=== PATIENT | male | born 1965 | race Caucasian/White ===

== ENCOUNTER 2017-05-08 20:27 | Observation (INO) | payer MEDICARE, OTHER ==
[~2017-05-08] VITALS: Ht 180.3 cm; Wt 99.1 kg
[2017-05-08 20:28] VITALS: BP 140/90; PULSE 64; RESP 18; TEMP 98; O2SAT 99
[2017-05-08 20:39] VITALS: RESP 24; O2SAT 97
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
[2017-05-08] MEDS ORDERED: NITROGLYCERIN 0.4 MG SL 25 TABS/BTL SL STA (20:59)
[2017-05-08] MEDS ORDERED: NITROGLYCERIN-D5W 50 MG/250 ML 250 ML IV PRN (20:59)
[2017-05-08] MEDS ORDERED: HEPARIN SODIUM - IV 10,000 UNITS/10 ML VIAL IV STA (20:59)
[2017-05-08] MEDS ORDERED: CALC550C CHEW (20:59)
[2017-05-08] MEDS ORDERED: ASPIRIN 81 MG CHEW TAB PO STA (20:59)
[2017-05-08] MEDS ORDERED: [UNRECOGNIZED DRUG - REMARK] (20:59)
[2017-05-08] MEDS ORDERED: ZOLO50TA PO (20:59)
[2017-05-08] MEDS ORDERED: DIAZ5 PO (20:59)
[2017-05-08] MEDS ORDERED: SODIUM CHLOR 0.9% 1000 ML INJ 1,000 ML IV ONE (20:59)
[2017-05-08] MEDS ORDERED: SODIUM CHLORID 0.9% 500 ML INJ 500 ML IV ONE (21:00)
[2017-05-08] MEDS ORDERED: SODIUM CHLORIDE 0.9% FLUSH 10 ML FLUSH IVF PRN (21:00)
[2017-05-08] MEDS ORDERED: NITROGLYCERIN 0.4 MG SL 25 TABS/BTL SL PRN (21:00)
[2017-05-08 21:02] VITALS: BP 140/90; PULSE 76; RESP 20; O2SAT 96
[2017-05-08 21:05] VITALS: O2SAT 97
[2017-05-08 21:12] LABS: AUTOMATED NEUTROPHIL # 9.4 TH/MM3 (1.8-7.7); BASOPHIL % 0.3 % (0.0-2.0); EOSINOPHIL # 0.1 TH/MM3 (0-0.4); EOSINOPHIL % 0.5 % (0.0-4.0); HEMATOCRIT 49.3 % (39.0-51.0); HEMO FLAGS DIFF FINAL; LYMPH % 15.6 % (9.0-44.0); LYMPHOCYTE # 1.9 TH/MM3 (1.0-4.8); MEAN CELL VOLUME 92.5 FL (80.0-100.0); MEAN CORPUSCULAR HGB CONC 32.4 % (32.0-36.0); MONO % 6.6 % (0.0-8.0); PLATELET COUNT 286 TH/MM3 (150-450); RED BLOOD COUNT 5.33 MIL/MM3 (4.50-5.90); RED CELL DISTRIBUTION WIDTH 14.2 % (11.6-17.2); WHITE BLOOD COUNT 12.2 TH/MM3 (4.0-11.0)
[2017-05-08 21:26] LABS: APTT (PATIENT) 23.9 SEC (24.3-30.1); PROTHROMBIN TIME - PATIENT 10.8 SEC (9.8-11.6)
[2017-05-08 21:27] LABS: ALT (GPT) 48 U/L (12-78); ANION GAP 7 MEQ/L (5-15); AST (GOT) 21 U/L (15-37); BICARBONATE 26.5 MEQ/L (21.0-32.0); BLOOD UREA NITROGEN 12 MG/DL (7-18); CHLORIDE 104 MEQ/L (98-107); GLOMERULAR FILTRATION RATE 58 ML/MIN (>89); MAGNESIUM 2.1 MG/DL (1.5-2.5); POTASSIUM 3.8 MEQ/L (3.5-5.1); SODIUM (NA) 137 MEQ/L (136-145)
[2017-05-08 21:30] LABS: ALKALINE PHOSPHATASE 132 U/L (45-117); CREATINE KINASE 226 U/L (39-308); TOTAL BILIRUBIN ADULT 0.8 MG/DL (0.2-1.0)
[2017-05-08] MEDS ORDERED: IOHEXOL 350 MG/ML 100 ML BTL (for Cath Lab) OTHER ONE (21:36)
[2017-05-08 21:44] LABS: ALCOHOL LESS THAN 3 MG/DL (0-5)
[2017-05-08 21:56] LABS: CKMB 1.7 NG/ML (0.5-3.6)
[2017-05-08] MEDS ORDERED: MIDAZOLAM HCL 5 MG/5 ML VIAL ONE (22:05)
[2017-05-08] MEDS ORDERED: NITROGLYCERIN INJ 0 ML ONE (22:06)
[2017-05-08] MEDS ORDERED: HEPARIN SODIUM - IV 10,000 UNITS/10 ML VIAL ONE (22:06)
[2017-05-08] MEDS ORDERED: SODIUM CHLOR 0.9% 1000 ML INJ 500 ML IV ONE (22:15)
--- NOTE | 2017-05-08 22:17 | RADRPT ---
EXAM DATE/TIME: 05/08/2017 20:51 [place] COMPARISON: No previous studies available for comparison. INDICATIONS : Chest pain. MEDICAL HISTORY : None. SURGICAL HISTORY : None. ENCOUNTER: Initial ACUITY: 1 day PAIN SCORE: 10/10 LOCATION: Bilateral chest FINDINGS: A single view of the chest demonstrates the lungs to be symmetrically aerated without evidence of mas s, infiltrate or effusion. The cardiomediastinal contours are unremarkable. Osseous structures are intact. CONCLUSION: Normal examination. Frankie Vitale MD on May 08, 2017 at 22:15 Board Certified Radiologist. This report was verified electronically.
[2017-05-08 22:30] VITALS: BP 104/67; PULSE 67; RESP 16; TEMP 97.6; O2SAT 95
--- NOTE | 2017-05-08 22:31 | CATHPROC ---
[employer] HIS Report Study Information Study Number Admission Scheduled Start Study Start [id number] May 08 2017 8:27PM 05/08/2017 May 08 2017 9:36PM [place] Service Cardiac Catheterization Admit Source Facility Department Emergency department [facility] - Plastic Surgery Technician Physician and Clinical Staff Initial Bhavana Delgado Credit Control Officer Vicky Engle,RN Credit Control Officer Dallin Oquendo,RN Recorder Denise Calvo,RT(R) Recorder Yovany Hernandez RCIS(BS) Scrub Guille GravesRT(R) Procedures Performed Procedure Location (Site) Vessel Name Angiogram LV LV Ventricle Coronary Angiograms LCA Left Coronary Coronary Angiograms RCA Right Coronary L Heart Cath Equipment Time Sleeve Presser Operator Description Size Mfg Part Number Used/Scraped TRANSDUCER, TRUWAVE [id number] 21:58 Ombitron * Used W/STOCKCOCK *[id number] *[id number] [id number] *[id number] 21:58 MEDLINE [employer] PACK, CCL CUSTOM * Used *[id number] 21:58 MustHaveMenus PACER PEN, SKIN DUAL W/ RULER * Used *[id number] 22:27 [employer] 30 PIYUSH INDEFLATOR Used *[id number] 22:26 [employer] SHEATH, FR6.5 PRELUDE 11CM FR 6.5 038ACT Used *[id number] 21:58 [employer] WIRE, 3MMJ .035 180CM 180CM Used *[id number] PROBE COVER, STERILE [id number] 21:58 [employer] MEDICAL * Used ULTRASOUND W/ GEL *[id number] 21:58 NAMIC MANIFOLD, 4 PORT * Used *[id number] 21:58 NAMIC TUBING, HIGH PRESSURE 48" 48" Used *[id number] 21:58 NYCOMED OMNIPAQUE, 350 MG, 150ML 150ML [id number] Used [id number] 21:58 [employer] MEDICAL BLANKET,WARM AIR CCL * Used *[id number] 21:58 [employer] MEDICAL SHEATH, FR5 TERUMO (10CM) FR 5 Used *[id number] History: Current Medications Medication Dosage/Unit Route Frequency Last Date/Time Taken XARELTO Zoloft ASA Albuterol Prilosec History: Allergies Allergy Reaction Unable to Assess History: Risk Factors Family History of Hypertension Dyslipidemia Previous AR Previous Heart Failure Premature CAD No No No No No Prior Valve Prior PCI Prior CABG Surgery No No No Cerebrovascular Peripheral Artery Chronic Lung On Dialysis Diabetes Disease Disease Disease No No No No No History: Symptoms/Diagnosis Selection Items Chest pain SOB History: Stress Tests Stress or Imaging Studies Performed No Labs Hgb (g/dl) Hct (%) WBC (l/cumm) 11.60-17.00 35.00-51.00 4.00-11.00 16.0 49.3 12.2 Glucose (mg/dl) BUN (mg/dl) Creatinine (mg/dl) BUN:Creatinine (1:x) 74.00-106.00 7.00-18.00 0.50-1.30 10.00-20.00 99 12 1.0 12 Na (meq/l) K (meq/l) 136.00-145.00 3.50-5.10 137 3.8 INR (PTT:PT) 0.90-1.10 1 Troponin I (ng/ml) CPK-MB (ng/ML) 0.02-0.05 0.50-3.60 0.02 Not Drawn Medication Medication Total Dose (Bolus/Oral) Medication Total Dosage/Unit 1% XYLOCAINE 20 mL FENTANYL 100 mcg VERSED 3 mg Medications (Bolus/Oral) Medication Time Given Dosage/Unit Administered By Reason VERSED 05/08/2017 9:49:48 PM 2 mg Vicky Engle 2 mg VERSED given in lab by Vicky Engle RN in Left Hand via Peripheral IV. Ordered by Charline Balderrama. FENTANYL 05/08/2017 9:50:10 PM 50 mcg Eda Englefer 50 mcg FENTANYL given in lab by Vicky Engle RN in Left Hand via Peripheral IV. Ordered by Bhavana Phililps. 1% XYLOCAINE 05/08/2017 9:56:36 PM 20 mL Bhavana Balderrama 20 mL 1% XYLOCAINE given in lab by Bhavana Balderrama in Right Groin via Subcutaneous. Ordered by Bhavana Phillips. VERSED 05/08/2017 9:57:00 PM 1 mg Vicky Engle 1 mg VERSED given in lab by Vicky Engle RN in Left Hand via Peripheral IV. Ordered by Charline Balderrama. FENTANYL 05/08/2017 9:58:00 PM 50 mcg Vicky Engle 50 mcg FENTANYL given in lab by Vicky Engle, RN in Left Hand via Peripheral IV. Ordered by Bhavana Phillips. Initial Case Assessment Cardiovascular HR Rhythm NIBP Chest Pain 60 sinus 120/77 10 Edema Present Skin color Skin None Normal Warm Dry Circulatory - Right Pulses Dorsalis Pedis Femoral 1 2 Scale (0,1,2,3,4,d) Circulatory - Left Pulses Dorsalis Pedis Femoral 1 2 Scale (0,1,2,3,4,d) Neurological State Oriented to time-place- Alert Moves all extremities person Respiration - General Respiration Rate SpO2 (%) O2 (lpm) (B/min) 43 96 2 Final Case Assessment Cardiovascular HR Rhythm NIBP Chest Pain 66 sinus 106/57 10 Edema Present Skin color Skin None Normal Warm Dry Circulatory - Right Pulses Dorsalis Pedis Femoral 1 2 Scale (0,1,2,3,4,d) Circulatory - Left Pulses Dorsalis Pedis Femoral 1 2 Scale (0,1,2,3,4,d) Neurological State Oriented to time-place- Alert Moves all extremities person Respiration - General Respiration Rate SpO2 (%) O2 (lpm) (B/min) 13 96 2 Chronological Log Time Study Chronological Log 21:36:10 Patient arrived via Bed. 21:39:36 Patient Name, D.O.B, / Armband Verified By R.N. 21:39:37 Consent signed by the physician and the patient and verified by the Plastic Surgery Technician staff. 21:39:38 Pre-op and post- op instructions given; patient acknowledges understanding of instructions. Vitals capture started with the following parameters, Patient=Adult, Interval=5 min, Initial Pr vtoyes=362 mmHg, 21:39:47 Deflation Rate=5 mmHg, Cuff placed on Left Arm 21:39:49 Patient has been NPO for Less than 6Hrs. 21:39:50 Skin Breakdown- 21:39:51 Patient Warmer Placed on the Table. 21:39:56 A # 20 IV was noted in the Forearm (right). Grade = 0 21:39:56 A # 20 IV was noted in the Hand (left). Grade = 0 21:39:57 History and physical on the chart or being dictated. Assessment: Initial Case, HR=60 BPM, Rhythm=sinus, IGUO=664/77 mmhg, Chest Pain=10, Edema=None, Color=Normal, Skin = Warm, Dry Right Pulses: Luis Fernando Ped=1, Femoral=2 21:39:58 Left Pulses: Luis Fernando Ped=1, Femoral=2 Neurological: State=Alert, Ox3, HAHN Respiration: Resp=43 B/min, SpO2=96 %, O2=2 lpm 21:40:23 FMCQ=676/77 mmhg, SpO2=96.0 %, Resp=7 B/min, Pain=10, Brook=9, Mckeon=2 21:44:31 Reference ECG taken 21:45:20 HR=60 bpm, XKOS=465/74 mmhg, SpO2=95.0 %, Resp=16 B/min 21:46:00 MD arrived. 21:49:48 2 mg VERSED given in lab by Vicky Engle, EDDIE in Left Hand via Peripheral IV. Ordered by Bhavana Balderrama. 21:50:10 50 mcg FENTANYL given in lab by Vicky Engle RN in Left Hand via Peripheral IV. Ordered by Bhavana Balderrama. 21:50:19 HR=67 bpm, LKIW=763/72 mmhg, SpO2=97.0 %, Resp=18 B/min, Pain=10, Brook=9, Mckeon=2 21:51:12 Pressure channel 1 zeroed. Time Out. Correct patient, correct procedure, correct physician, power injector loaded with con trast with surgical team 21:54:44 present. Time Out Concurred by , individual staff in procedure. 21:55:20 HR=66 bpm, VWYN=947/60 mmhg, SpO2=90.0 %, Resp=11 B/min, Pain=10, Brook=9, Mckeon=2 21:56:22 Case Start 21:56:36 20 mL 1% XYLOCAINE given in lab by Bhavana Balderrama in Right Groin via Subcutaneous. Ordered by Bhavana Balderrama. 21:56:48 Access site was Right Femoral Artery. 21:57:00 1 mg VERSED given in lab by Vicky Engle, EDDIE in Left Hand via Peripheral IV. Ordered by Bhavana Balderrama. 21:57:13 A SHEATH, FR5 TERUMO (10CM) FR 5 was advanced into the Fem Art (right) using the Percutaneo us technique. A JL 4.0 INFINITI CATHETER FR 5 was advanced over a wire. OMNIPAQUE, 350 MG, 150ML 150ML was us ed for 21:57:56 injections. 21:58:00 50 mcg FENTANYL given in lab by Vicky Engle, EDDIE in Left Hand via Peripheral IV. Ordered by Bhavana Balderrama. 21:58:29 The LCA was injected and visualized at various angles. OMNIPAQUE, 350 MG, 150ML 150ML used . After removing the current catheter a AR MOD INFINITI CATHETER FR 5 was advanced over a WIRE, 3 MMJ .035 180CM 22:00:08 180CM. 22:00:19 HR=63 bpm, TYOR=234/58 mmhg, SpO2=92.0 %, Resp=12 B/min 22:01:09 The RCA was injected and visualized at various angles. OMNIPAQUE, 350 MG, 150ML 150ML used . Recorded Pressure: LV, HR=71, Condition=Condition 1 22:02:52 (Left Ventricle) LV 103/8/13 22:03:09 The LV was injected at 10 cc/sec for a total of 30. OMNIPAQUE, 350 MG, 150ML 150ML used. Recorded Pressure: LV, Ao, HR=71, Condition=Condition 1 22:04:04 (Left Ventricle) LV 98/7/11, (Aorta) Ao 92/56/73 22:05:05 Case End 22:05:20 HR=73 bpm, RGQS=831/58 mmhg, SpO2=93.0 %, Resp=15 B/min, Brook=9, Mckeon=2 22:05:30 Sheath removed; pressure applied to access site. 22:10:19 HR=67 bpm, NIBP=98/66 mmhg, SpO2=95.0 %, Resp=13 B/min, Brook=9, Mckeon=2 22:15:20 HR=64 bpm, XRSL=609/57 mmhg, SpO2=96.0 %, Resp=11 B/min, Brook=9, Mckeon=2 Assessment: Final Case, HR=66 BPM, Rhythm=sinus, WPJR=031/57 mmhg, Chest Pain=10, Edema=None, Color=Normal, Skin = Warm, Dry Right Pulses: Luis Fernando Ped=1, Femoral=2 22:16:18 Left Pulses: Luis Fernando Ped=1, Femoral=2 Neurological: State=Alert, Ox3, HAHN Respiration: Resp=13 B/min, SpO2=96 %, O2=2 lpm 22:20:21 HR=61 bpm, RLQK=409/64 mmhg, SpO2=97.0 %, Resp=12 B/min, Brook=9, Mckeon=2 22:25:22 HR=63 bpm, IBAS=291/60 mmhg, SpO2=97.0 %, Resp=13 B/min, Brook=9, Mckeon=2 22:27:12 Sterile dressing applied to site 22:27:13 No case complications noted. 22:27:14 Cine recording checked. 22:27:16 Bedside Report will be given. 22:27:20 Contrast Scanned 22:27:24 A Left Heart Cath was performed. 22:27:25 Patient moved to bed End Study - Contrast Media Used In Study Contrast Total Opened (mL) Total Used (mL) Total Wasted (mL) Omnipaque 100 100 0 End Study - Maximum Contrast Load Max Contrast Load (mL) 500.0 End Study - Radiation Exposure Fluoro Time (minutes) 1.1 End Study - Patient Disposition Complications Transferred To Interventional Outcome No Telemetry Bed No attempt made
[2017-05-08 23:00] VITALS: BP 110/70; PULSE 63
[2017-05-08 23:12] LABS: HDL CHOLESTEROL 50.9 MG/DL (40.0-60.0)
[2017-05-09] VITALS (15 sets, daily range): BP systolic 93–120; BP diastolic 57–75; PULSE 59–79; RESP 16–18; TEMP 98.1–98.4; O2SAT 95–97
[2017-05-09] MEDS ORDERED: ACETAMINOPHEN/HYDROcodone 325 MG/7.5 MG TAB PO ONE (00:45)
[2017-05-09] MEDS ORDERED: ASPIRIN 81 MG CHEW TAB CHEW SCH (09:00)
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
[2017-05-09] MEDS ORDERED: ATOR40TA16 PO (10:25)
[2017-05-09] MEDS ORDERED: XARE10TA PO (10:25)
--- NOTE | 2017-05-09 10:42 | PD.CONS ---
[facility] By [facility] Physician Unknown Diagnoses: History of Present Illness Please see discharge summary. Past Family Social History Allergies: Coded Allergies: tramadol (Verified Allergy, Mild, Nausea/Vomiting, 05/09/17) Unable to Assess (Verified Allergy, Unknown, 05/08/17) UNOBTAINABLE Physical Exam Vital Signs Vital Signs Date Time Temp Pulse Resp B/P (MAP) Pulse Ox O2 Delivery O2 Flow Rate FiO2 05/09/17 10:00 70 05/09/17 09:00 70 05/09/17 08:00 62 05/09/17 07:41 98.4 61 18 93/57 (69) 97 05/09/17 07:00 59 05/09/17 06:00 65 05/09/17 05:00 67 05/09/17 04:00 72 05/09/17 03:30 98.1 70 16 120/75 (90) 97 05/09/17 02:00 79 05/09/17 01:00 74 05/09/17 00:00 66 05/08/17 23:00 63 05/08/17 23:00 63 110/70 (83) 05/08/17 22:30 97.6 67 16 104/67 (79) 95 05/08/17 22:30 67 05/08/17 21:53 05/08/17 21:05 97 2.00 05/08/17 21:05 97 Nasal Cannula 2.00 05/08/17 21:03 97 Nasal Cannula 2.00 05/08/17 21:02 76 20 140/90 (107) 96 Nasal Cannula 2.00 05/08/17 20:39 24 97 Room Air 05/08/17 20:28 98.0 64 18 140/90 (107) 99 Physical Exam GENERAL: This is a well-nourished, well-developed patient, in no apparent distress. SKIN: No rashes, ecchymoses or lesions. Cool and dry. HEAD: Atraumatic. Normocephalic. No temporal or scalp tenderness. EYES: Pupils equal round and reactive. Extraocular motions intact. No scleral icterus. No injection or drainage. ENT: Nose without bleeding, purulent drainage or septal hematoma. Throat without erythema, tonsillar hypertrophy or exudate. Uvula midline. Airway patent. NECK: Trachea midline. No JVD or lymphadenopathy. Supple, nontender, no meningeal signs. CARDIOVASCULAR: Regular rate and rhythm without murmurs, gallops, or rubs. RESPIRATORY: Clear to auscultation. Breath sounds equal bilaterally. No wheezes , rales, or rhonchi. GASTROINTESTINAL: Abdomen soft, non-tender, nondistended. No hepato-splenomegaly , or palpable masses. No guarding. MUSCULOSKELETAL: Extremities without clubbing, cyanosis, or edema. No joint tenderness, effusion, or edema noted. No calf tenderness. Negative Homans sign bilaterally. NEUROLOGICAL: Awake and alert. Cranial nerves II through XII intact. Motor and sensory grossly within normal limits. Five out of 5 muscle strength in all muscle groups. Normal speech. Laboratory Laboratory Tests Test 05/08/17 20:45 White Blood Count 12.2 Red Blood Count 5.33 Hemoglobin 16.0 Hematocrit 49.3 Mean Corpuscular Volume 92.5 Mean Corpuscular Hemoglobin 30.0 Mean Corpuscular Hemoglobin Concent 32.4 Red Cell Distribution Width 14.2 Platelet Count 286 Mean Platelet Volume 8.2 Neutrophils (%) (Auto) 77.0 Lymphocytes (%) (Auto) 15.6 Monocytes (%) (Auto) 6.6 Eosinophils (%) (Auto) 0.5 Basophils (%) (Auto) 0.3 Neutrophils # (Auto) 9.4 Lymphocytes # (Auto) 1.9 Monocytes # (Auto) 0.8 Eosinophils # (Auto) 0.1 Basophils # (Auto) 0.0 CBC Comment DIFF FINAL Differential Comment Prothrombin Time 10.8 Prothromb Time International Ratio 1.0 Activated Partial Thromboplast Time 23.9 Blood Urea Nitrogen 12 Creatinine 1.09 Random Glucose 99 Total Protein 7.7 Albumin 3.5 Calcium Level 9.6 Magnesium Level 2.1 Alkaline Phosphatase 132 Aspartate Amino Transf (AST/SGOT) 21 Alanine Aminotransferase (ALT/SGPT) 48 Total Bilirubin 0.8 Sodium Level 137 Potassium Level 3.8 Chloride Level 104 Carbon Dioxide Level 26.5 Anion Gap 7 Estimat Glomerular Filtration Rate 58 Total Creatine Kinase 226 Creatine Kinase MB 1.7 Troponin I LESS THAN 0.02 B-Type Natriuretic Peptide 5 Triglycerides Level 108 Cholesterol Level 216 LDL Cholesterol 144 HDL Cholesterol 50.9 Cholesterol/HDL Ratio 4.24 Lipase 804 Ethyl Alcohol Level LESS THAN 3 Result Diagram: 05/08/17204405/08/172044 Eri Omer MD May 09, 2017 10:42
--- NOTE | 2017-05-09 10:43 | HHI.DCPOC ---
Discharge Care Plan Diagnosis: (1) Stress (2) Syncope and collapse Goals to Promote Your Health * To prevent worsening of your condition and complications * To maintain your health at the optimal level Directions to Meet Your Goals Take your medications as prescribed Follow your dietary instruction Follow activity as directed Keep your appointments as scheduled Take your immunizations and boosters as scheduled If your symptoms worsen call your PCP, if no PCP go to Urgent Care Center or Emergency Room Smoking is Dangerous to Your Health. Avoid second hand smoke Call the 24-hour hour crisis hotline for domestic abuse at Eri Omer MD May 09, 2017 10:43
--- NOTE | 2017-05-09 10:48 | HHI.DS ---
Discharge Summary Admission Date May 08, 2017 at 21:59 Discharge Date: May 09, 2017 Admitting Diagnosis STEMI (1) Anxiety ICD Code: F41.9 - Anxiety disorder, unspecified Diagnosis: Principal (2) Syncope and collapse ICD Code: R55 - Syncope and collapse Diagnosis: Principal Procedures Cardiac catheterization Brief History - From Admission This is a 51-year-old male with past medical history significant for anxiety who presented with STEMI alert on 05/08. Patient stated that he was visiting his girlfriend in the psych unit and he had argument with his girlfriend's daughter that caused him a lot of stress and anxiety. He stated that because of this he had a severe headache and then he passed out. Patient was found to have ST elevated MA and had emergent cardiac catheterization done. Cardiac catheterization was negative. [facility] consulted for medical management. When patient was seen and interviewed he had no complaints. He stated his girlfriend's daughter caused him a lot of stress and ruined their life together. Patient denies any chest pain, shortness of breathing, palpitation, lightheadedness or dizziness. All other review symptoms reviewed and negative except for anxiety. He denied any depression, homicidal or suicidal ideation. Patient stated that he will move on from this. CBC/BMP: 05/08/17204405/08/172044 Significant Findings Laboratory Tests Test 05/08/17 20:45 White Blood Count 12.2 TH/MM3 (4.0-11.0) Neutrophils (%) (Auto) 77.0 % (16.0-70.0) Neutrophils # (Auto) 9.4 TH/MM3 (1.8-7.7) Activated Partial Thromboplast Time 23.9 SEC (24.3-30.1) Alkaline Phosphatase 132 U/L (45-117) Estimat Glomerular Filtration Rate 58 ML/MIN (>89) Troponin I LESS THAN 0.02 NG/ML Cholesterol Level 216 MG/DL (120-200) LDL Cholesterol 144 MG/DL (0-99) Lipase 804 U/L (73-393) Imaging Last Impressions Chest X-Ray 05/08/172036 Signed Impressions: Service Date/Time: Monday, May 08, 2017 20:51 - CONCLUSION: Normal examination. Frankie Vitale MD PE at Discharge GENERAL: In no acute distress SKIN: Warm and dry. HEAD: Normocephalic. EYES: No scleral icterus. No injection or drainage. NECK: Supple, trachea midline. No JVD or lymphadenopathy. CARDIOVASCULAR: Regular rate and rhythm without murmurs, gallops, or rubs. RESPIRATORY: Breath sounds equal bilaterally. No accessory muscle use. GASTROINTESTINAL: Abdomen soft, non-tender, nondistended. MUSCULOSKELETAL: No cyanosis, or edema. BACK: Nontender without obvious deformity. No CVA tenderness. Hospital Course Patient had a relatively uncomfortable care hospital course in which when patient collapsed he had an EKG that showed STEMI. Patient had emergent cardiac catheterization was negative. Patient gained consciousness very quickly and immediately back to his baseline. Most likely all symptoms were secondary to severe stress and anxiety. Patient was asymptomatic at time of discharge. Pt Condition on Discharge: Good Discharge Disposition: Discharge Home Discharge Time: > 30 minutes Discharge Instructions DIET: Follow Instructions for: Low Fat Diet Activities you can perform: Regular-No Restrictions Follow up Referrals: PCP Follow-up - 1 Week Continued Medications: Atorvastatin (Atorvastatin) 40 Mg Tab 40 MG PO HS for Cholesterol Management, #30 TAB 0 Refills Calcium Carbonate-Mag Hydroxide (Antacid) 550-110 Mg Chew 2 TAB CHEW QID PRN for HEARTBURN, TAB 0 Refills Diazepam (Valium) 5 Mg Tab 5 MG PO BID PRN for ANXIETY, TAB 0 Refills Rivaroxaban (Xarelto) 10 Mg Tab 10 MG PO DAILY for Blood Clot Prevention, TAB 0 Refills Sertraline (Zoloft) 50 Mg Tab 50 MG PO DAILY, #30 TAB 0 Refills [Pancreas Pill] () Eri Omer MD May 09, 2017 10:48
--- NOTE | 2017-05-09 10:55 | EKG ---
Date Performed: 05/08/2017 Time Performed: 20:46:11 PTAGE: 89 years EKG: Normal Sinus rhythm ST elevation suggestive of early repolarization Cannot exclude pericarditis ST elevation has increas ed slightly compared to the prior tracing NO PREVIOUS TRACING DOCTOR: Macario Pina Interpretating Date/Time 05/09/2017 10:55:15
--- NOTE | 2017-05-09 11:01 | EKG ---
Date Performed: 05/09/2017 Time Performed: 04:15:40 PTAGE: 89 years EKG: Normal Sinus rhythm ST elevation suggestive of early repolarization Slight first degree AV block Abnormal ECG PREVIOUS TRACING 05/08/17 20.46.11 Probably no change from the prior tracing. DOCTOR: Macario Pina Interpretating Date/Time 05/09/2017 11:00:19
--- NOTE | 2017-05-09 13:45 | PD.CARD.PN ---
Subjective Subjective Remarks No CP or SOB, feels better Objective Vital Signs / I&O Vital Signs Date Time Temp Pulse Resp B/P (MAP) Pulse Ox O2 Delivery O2 Flow Rate FiO2 05/09/17 12:41 98.1 68 18 115/58 (77) 95 05/09/17 12:00 64 05/09/17 11:42 67 05/09/17 10:00 70 05/09/17 09:00 70 05/09/17 08:00 62 05/09/17 07:41 98.4 61 18 93/57 (69) 97 05/09/17 07:00 59 05/09/17 06:00 65 05/09/17 05:00 67 05/09/17 04:00 72 05/09/17 03:30 98.1 70 16 120/75 (90) 97 05/09/17 02:00 79 05/09/17 01:00 74 05/09/17 00:00 66 05/08/17 23:00 63 05/08/17 23:00 63 110/70 (83) 05/08/17 22:30 97.6 67 16 104/67 (79) 95 05/08/17 22:30 67 05/08/17 21:53 05/08/17 21:05 97 2.00 05/08/17 21:05 97 Nasal Cannula 2.00 05/08/17 21:03 97 Nasal Cannula 2.00 05/08/17 21:02 76 20 140/90 (107) 96 Nasal Cannula 2.00 05/08/17 20:39 24 97 Room Air 05/08/17 20:28 98.0 64 18 140/90 (107) 99 I/O 05/08/17 05/08/17 05/08/17 05/09/17 05/09/17 05/09/17 06:59 14:59 22:59 06:59 14:59 22:59 Intake Total 980 ml Output Total 300 ml Balance 680 ml Intake Oral 480 ml IV Total 500 ml Output Urine Total 300 ml # Bowel Movements 0 Physical Exam GENERAL: In NAD SKIN: Warm and dry. HEAD: Normocephalic. EYES: No scleral icterus. No injection or drainage. NECK: Supple, trachea midline. No JVD or lymphadenopathy. CARDIOVASCULAR: Regular rate and rhythm without murmurs, gallops, or rubs. RESPIRATORY: Breath sounds equal bilaterally. No accessory muscle use. GASTROINTESTINAL: Abdomen soft, non-tender, nondistended. MUSCULOSKELETAL: No cyanosis, or edema. Groin stable Laboratory Laboratory Tests Test 05/08/17 20:45 White Blood Count 12.2 TH/MM3 Red Blood Count 5.33 MIL/MM3 Hemoglobin 16.0 GM/DL Hematocrit 49.3 % Mean Corpuscular Volume 92.5 FL Mean Corpuscular Hemoglobin 30.0 PG Mean Corpuscular Hemoglobin Concent 32.4 % Red Cell Distribution Width 14.2 % Platelet Count 286 TH/MM3 Mean Platelet Volume 8.2 FL Neutrophils (%) (Auto) 77.0 % Lymphocytes (%) (Auto) 15.6 % Monocytes (%) (Auto) 6.6 % Eosinophils (%) (Auto) 0.5 % Basophils (%) (Auto) 0.3 % Neutrophils # (Auto) 9.4 TH/MM3 Lymphocytes # (Auto) 1.9 TH/MM3 Monocytes # (Auto) 0.8 TH/MM3 Eosinophils # (Auto) 0.1 TH/MM3 Basophils # (Auto) 0.0 TH/MM3 CBC Comment DIFF FINAL Differential Comment Prothrombin Time 10.8 SEC Prothromb Time International Ratio 1.0 RATIO Activated Partial Thromboplast Time 23.9 SEC Blood Urea Nitrogen 12 MG/DL Creatinine 1.09 MG/DL Random Glucose 99 MG/DL Total Protein 7.7 GM/DL Albumin 3.5 GM/DL Calcium Level 9.6 MG/DL Magnesium Level 2.1 MG/DL Alkaline Phosphatase 132 U/L Aspartate Amino Transf (AST/SGOT) 21 U/L Alanine Aminotransferase (ALT/SGPT) 48 U/L Total Bilirubin 0.8 MG/DL Sodium Level 137 MEQ/L Potassium Level 3.8 MEQ/L Chloride Level 104 MEQ/L Carbon Dioxide Level 26.5 MEQ/L Anion Gap 7 MEQ/L Estimat Glomerular Filtration Rate 58 ML/MIN Total Creatine Kinase 226 U/L Creatine Kinase MB 1.7 NG/ML Troponin I LESS THAN 0.02 NG/ML B-Type Natriuretic Peptide 5 PG/ML Triglycerides Level 108 MG/DL Cholesterol Level 216 MG/DL LDL Cholesterol 144 MG/DL HDL Cholesterol 50.9 MG/DL Cholesterol/HDL Ratio 4.24 RATIO Lipase 804 U/L Ethyl Alcohol Level LESS THAN 3 MG/DL Imaging Last Impressions Chest X-Ray 05/08/172036 Signed Impressions: Service Date/Time: Monday, May 08, 2017 20:51 - CONCLUSION: Normal examination. Frankie Vitale MD Assessment and Plan Problem List: (1) Unstable angina ICD Codes: I20.0 - Unstable angina (2) ACS (acute coronary syndrome) ICD Codes: I24.9 - Acute ischemic heart disease, unspecified (3) Chronic pancreatitis ICD Codes: K86.1 - Other chronic pancreatitis (4) History of DVT (deep vein thrombosis) ICD Codes: Z86.718 - Personal history of other venous thrombosis and embolism Assessment and Plan No recurrent CP. Cath with nl LV function and no evidence of significant CAD. Groin stable. DC home. F/u w PCP after discharge. Bhavana Balderrama MD May 09, 2017 13:45
--- NOTE | 2017-05-10 10:18 | MR ---
cc: REYNOLD GAITAN MD INDICATIONS Acute coronary syndrome, unstable angina, class IV angina. PROCEDURE PERFORMED 1. Retrograde left heart catheterization with left ventriculography and selective coronary angiography 2. Moderate sedation ACCESS SITE Right femoral artery EQUIPMENT USED 5 inch pigtail, 5 inch JL-4 and AR modified coronary catheters. MEDICATIONS Versed IV Fentanyl IV CONTRAST Omnipaque 100 mL COMPLICATIONS None BLOOD LOSS Less than 10 cc's METHOD OF HEMOSTASIS Manual compression. RESULTS/HEMODYNAMICS Heart rate 65 beats per minute. Left ventricular end-diastolic pressure 7 mmHg. Left ventricle 98/7. Aorta 98/56/73. LEFT VENTRICULOGRAPHY The left ventricular ejection fraction of 55%. Wall motion normal. No mitral regurgitation. CORONARY ANGIOGRAPHY Left main coronary artery is patent. Left anterior descending artery is patent. D1 patent. Left circumflex artery patent. OM1 patent. OM2 patent. Right coronary artery is a dominant vessel, which is patent. PDA patent. PLV patent. DIAGNOSIS 1. Widely patent coronary arteries. 2. Preserved left ventricular systolic function. DISPOSITION Mr. Srivastava can reassured about cardiac status. His study showed widely patent coronary arteries and preserved left ventricular systolic function. He will be monitored on telemetry after his procedure. MD NELY Bailey/ /10:13 PM /9:59 AM MTDD
== END 2017-05-09 13:06 | disposition home or self-care (01) ==
LOC: NEPC 20:27 → NEDA 21:59 → UNDOADMOB 21:59 → NEDA 21:59 → EDBD 21:59 → INTOOBSV 21:59 → HCIS 22:39 → NEDA 22:39
PROVIDERS: ADMIT Family Medicine; ATTEND Family Medicine
DX: I20.0 Unstable angina (principal); F41.9 Anxiety disorder, unspecified; K86.1 Other chronic pancreatitis; R55 Syncope and collapse; J44.9 Chronic obstructive pulmonary disease, unspecified; E78.5 Hyperlipidemia, unspecified; F32.9 Major depressive disorder, single episode, unspecified; Z86.718 Personal history of other venous thrombosis and embolism; Z79.01 Long term (current) use of anticoagulants; Z87.891 Personal history of nicotine dependence
CPT/HCPCS: 71010; 80053; 80061; 80307; 82550; 82552; 83690; 83735; 83880; 84484; 85610; 85730; 93005; 93458; 99285; C1769; C1893; G0378; J1644; J2250; J3010; J7040; 85025; Q9967